=== PATIENT | male | born 1995 | race African-American/Black ===

== ENCOUNTER 2019-01-27 08:28 | Emergency (ER) | payer MEDICAID ==
[~2019-01-27] VITALS: Ht 175.3 cm; Wt 72.6 kg
[2019-01-27 08:38] VITALS: BP 125/60
== END 2019-01-27 09:14 | disposition home or self-care (01) ==
LOC: ER 08:31
DX: B35.6 Tinea cruris (principal); R21 Rash and other nonspecific skin eruption; F17.200 Nicotine dependence, unspecified, uncomplicated; Z60.2 Problems related to living alone